=== PATIENT | male | born 1990 | race Caucasian/White ===

== ENCOUNTER 2016-08-17 10:09 | Emergency (ER) | payer BC, OTHER ==
[2016-08-17] MEDS ORDERED: Ibuprofen TAB* 600 MG PO ONE (11:16)
[2016-08-17 11:54] VITALS: BP 110/70
--- NOTE | 2016-08-17 15:37 | ED ---
Lachelle Ortega Salem, scribed for Tyrone Whitlock MD on 08/17/16 at 1537 . Headache - HPI Summary HPI Summary: Patient is a 26 y/o male who presents to [facility] after falling on the back of his head at 0900. Pt reports onset of throbbing headache at the time of the fall, but now has a mild frontal headache. He denies LOC, dizziness, or nausea, but reports soreness of the neck. - History Of Current Complaint Chief Complaint: EDHeadInjury Stated Complaint: FALL HEAD INJURY Time Seen by Provider: 08/17/16 10:39 Hx Obtained From: Patient Onset/Duration: Started hours ago, Still Present - More mild now. Initially Headache Was: Mild Currently Pain Is: Mild Timing: Hours Character: Throbbing - Initially. Location of Headache: Frontal - Currently., Occipital - Initally. Aggravating Factor: Nothing Allevating Factors: Nothing Associated Signs And Symptoms: Neck Stiffness - Allergies/Home Medications Allergies/Adverse Reactions: Allergies Allergy/AdvReac Type Severity Reaction Status Date / Time No Known Allergies Allergy Verified 08/17/16 10:10 PMH/Surg Hx/FS Hx/Imm Hx Infectious Disease History: No Infectious Disease History: Denies: Traveled Outside the [place] in Last 30 Days - Family History Known Family History: Positive: None - Pt reports he has no significant FHx. - Social History Alcohol Use: Occasionally Substance Use Type: Reports: None Smoking Status (MU): Never Smoked Tobacco Review of Systems Constitutional: Other - Neck soreness. Negative: Nausea Neurological: Negative - Denies LOC or dizziness. All Other Systems Reviewed And Are Negative: Yes Physical Exam Triage Information Reviewed: Yes Vital Signs On Initial Exam: Initial Vitals Temp Pulse Resp BP Pulse Ox 98 F 44 12 119/76 100 08/17/16 10:10 08/17/16 10:10 08/17/16 10:10 08/17/16 10:10 08/17/16 10:10 Vital Signs Reviewed: Yes Appearance: Positive: Well-Appearing, No Pain Distress Skin: Positive: Warm, Skin Color Reflects Adequate Perfusion, Dry Head/Face: Positive: Normal Head/Face Inspection Eyes: Positive: Other: - Fundi sharp. Neck: Positive: Supple, Nontender - No cervical tenderness. Respiratory/Lung Sounds: Positive: Clear to Auscultation, Breath Sounds Present Cardiovascular: Positive: RRR Abdomen Description: Positive: Nontender, Soft Bowel Sounds: Positive: Present Musculoskeletal: Positive: Normal Neurological: Positive: Normal, Sensory/Motor Intact, Alert, Oriented to Person Place, Time, CN Intact II-III, Reflexes Intact. Negative: Pronator Drift Present Psychiatric: Positive: Normal, Affect/Mood Appropriate AVPU Assessment: Alert Diagnostics - Vital Signs Vital Signs Temp Pulse Resp BP Pulse Ox 08/17/16 10:10 98 F 44 12 119/76 100 - Laboratory Lab Statement: Any lab studies that have been ordered have been reviewed, and results considered in the medical decision making process. Headache Course/Dx - Course Course Of Treatment: Ranjanavalarie presented to the ED after hitting his head on a chair hard enough for him to be stunned and have throbbing pain. He never lost consciousness and his pain improved gradually without incorporating any other symptoms. His exam was unremarkable and a CT was not indicated. - Diagnoses Provider Diagnoses: Head injury due to trauma Discharge - Discharge Plan Condition: Stable Disposition: HOME Patient Education Materials: Concussion (ED) Referrals: [facility] [Outside] - 2 Days The documentation as recorded by the Lachelle holder Salem accurately reflects the service I personally performed and the decisions made by me, Tyrone Whitlock MD.
== END 2016-08-17 11:54 | disposition home or self-care (01) ==
LOC: ED 10:09
DX: S09.90XA Unspecified injury of head, initial encounter (principal); W19.XXXA Unspecified fall, initial encounter; Y93.9 Activity, unspecified; Y92.9 Unspecified place or not applicable; Y99.9 Unspecified external cause status
CPT/HCPCS: 99282